=== PATIENT | male | born 1945 | race African-American/Black ===

== ENCOUNTER 2022-05-08 15:55 | Inpatient (IN) | payer OTHER, MEDICAID ==
[~2022-05-08] VITALS: Ht 175.3 cm; Wt 50.3 kg
[2022-05-08] MEDS ORDERED: SODIUM CHLORIDE 0.9% 1000ML BAG (SEPSIS BOLUS) IV ONE (16:45)
[2022-05-08 17:52] LABS: INR 1.1; PROTHROMBIN TIME 11.5 sec (9.6-11.0)
[2022-05-08 17:54] LABS: CHLORIDE 110 mEq/L (98-107)
[2022-05-08 18:24] LABS: HEMATOCRIT. 21.6 % (42.0-52.0); MEAN PLATELET VOLUME 7.8 fl (7.4-10.4); PLATELET 216 x1000/uL (130-400); RED BLOOD CELL COUNT 2.27 mill/uL (4.7-6.1); RED CELL DISTRIBUTION WIDTH 21.1 % (11.6-14.6)
[2022-05-08 18:30] LABS: HEMOGLOBIN. 6.8 g/dL (14.0-18.0)
[2022-05-08 19:46] LABS: PLATELET ESTIMATE NORMAL
[2022-05-08] MEDS ORDERED: CEFEPIME 1,000 MG in DEXTROSE 5% WATER 50 ML IV SCH (20:00)
[2022-05-08] MEDS ORDERED: SODIUM CHLORIDE 0.9% 1,000 ML IV SCH (21:45)
[2022-05-08] MEDS ORDERED: ALBUMIN HUMAN 25GM/100ML (25%) IV PRN (21:45)
[2022-05-08] MEDS ORDERED: PIPERACILLIN/TAZOBACTAM 3.375 G in DEXTROSE 5% WATER 50 ML IV SCH (21:45)
[2022-05-08] MEDS ORDERED: IPRATROPIUM/ALBUTEROL 0.5-3(2.5)MG/3ML NEB NEB PRN (21:45)
[2022-05-08] MEDS ORDERED: ONDANSETRON HCL 4MG/2ML INJ IV PRN (21:45)
[2022-05-08] MEDS ORDERED: PIPERACILLIN/TAZ 3.375G PREMIX 50 ML IV NR (22:00)
[2022-05-08 22:18] LABS: TOTAL IRON BINDING CAPACITY 184 ug/dL (250-450)
[2022-05-08] MEDS ORDERED: VANCOMYCIN 1G PREMIX 200 ML IV SCH (23:00)
[2022-05-09] VITALS (8 sets, daily range): BP systolic 88–128; BP diastolic 45–71
[2022-05-09] MEDS ORDERED: PIPERACILLIN/TAZOBACTAM 3.375G in DEXT 5% WATER 50ML IV SCH (06:00)
[2022-05-09] MEDS ORDERED: PIPERACILLIN/TAZ 3.375G PREMIX 50 ML IV SCH (06:25)
[2022-05-09] MEDS ORDERED: LEVE1000 PO (12:12)
[2022-05-09] MEDS ORDERED: CHOL400D7 MT (12:12)
[2022-05-09] MEDS ORDERED: PHEN50TA MT (12:12)
[2022-05-09] MEDS ORDERED: TOPUD MT (12:12)
[2022-05-09] MEDS ORDERED: COR6 MT (12:12)
[2022-05-09] MEDS ORDERED: LIP40 PO (12:12)
[2022-05-09] MEDS ORDERED: CYAN50009 MT (12:12)
[2022-05-09] MEDS ORDERED: ASPI-1160 PO (12:12)
[2022-05-09] MEDS ORDERED: CARB-298 MT (12:12)
[2022-05-09] MEDS ORDERED: DOCU-286 MT (12:12)
[2022-05-09] MEDS ORDERED: CALC-1139 MT (12:12)
[2022-05-09] MEDS ORDERED: FERR325T6 MT (12:12)
[2022-05-09 15:03] LABS: CLARITY URINE CLEAR (CLEAR); COLOR URINE YELLOW (YELLOW); KETONES URINE NEGATIVE (NEGATIVE); LEUKOCYTE ESTERASE URINE 2+ (NEGATIVE); NITRITE URINE POSITIVE (NEGATIVE); OCCULT BLOOD URINE 3+ (NEGATIVE); PH URINE 5.5 (4.5-8.0); PROTEIN URINE 1+ (NEGATIVE); UROBILINOGEN URINE 0.2 E.U./dL (0.2-1.0)
[2022-05-09 17:06] LABS: HEMATOCRIT. 31.6 % (42.0-52.0); MEAN CORPUSCULAR HEMOGLOBIN 30.7 pg (28.0-32.0); MEAN CORPUSCULAR VOLUME 96.8 fL (80.0-94.0); MEAN PLATELET VOLUME 7.3 fl (7.4-10.4); PLATELET 208 x1000/uL (130-400); RED BLOOD CELL COUNT 3.26 mill/uL (4.7-6.1); RED CELL DISTRIBUTION WIDTH 20.8 % (11.6-14.6)
[2022-05-09 17:22] LABS: CHLORIDE 112 mEq/L (98-107)
[2022-05-09 17:39] LABS: CREATINE KINASE 184 IU/L (39-308); CREATINE KINASE MB FRACTION 2.3 ng/mL (0.5-3.6); HDL CHOLESTEROL 46 mg/dL (40-59); LDL CHOLESTEROL 70 mg/dL (5-100)
[2022-05-09] MEDS: PIPERACILLIN/TAZOBACTAM 3.375 G in DEXTROSE 5% WATER 50 ML IV SCH ×2 (18:44→23:26)
[2022-05-09 21:06] LABS: PLATELET ESTIMATE NORMAL
[2022-05-10] VITALS (12 sets, daily range): BP systolic 97–137; BP diastolic 47–76
[2022-05-10] MEDS: PIPERACILLIN/TAZOBACTAM 3.375 G in DEXTROSE 5% WATER 50 ML IV SCH (06:01)
[2022-05-10 11:43] LABS: HEMOGLOBIN. 8.8 g/dL (14.0-18.0); MEAN CORPUSCULAR HEMOGLOBIN 30.1 pg (28.0-32.0); MEAN CORPUSCULAR VOLUME 95.7 fL (80.0-94.0); MEAN PLATELET VOLUME 6.8 fl (7.4-10.4); PLATELET 175 x1000/uL (130-400); RED BLOOD CELL COUNT 2.93 mill/uL (4.7-6.1); RED CELL DISTRIBUTION WIDTH 20.2 % (11.6-14.6)
[2022-05-10 11:58] LABS: CHLORIDE 110 mEq/L (98-107)
[2022-05-10] MEDS: CARBIDOPA/LEVODOPA 10/100MG TABLET PO SCH ×2 (13:06→17:36)
[2022-05-10] MEDS: LEVETIRACETAM 500MG TABLET PO SCH ×2 (13:06→21:56)
[2022-05-10] MEDS: PANTOPRAZOLE 40MG DR TABLET PO SCH (13:06)
[2022-05-10] MEDS: PHENYTOIN 100 MG/4 ML UDC PO SCH ×2 (13:06→21:58)
[2022-05-10 13:20] LABS: NUCLEATED RED BLOOD CELLS 1 /100 WBC; PLATELET ESTIMATE NORMAL
[2022-05-10 15:45] LABS: FOLIC ACID (FOLATE) SERUM > 20.00 ng/mL (>5.38); VITAMIN B12 SERUM > 2000 pg/mL (211-911)
[2022-05-10] MEDS: CARVEDILOL 6.25 MG TABLET PO SCH (21:57)
[2022-05-11] VITALS (12 sets, daily range): BP systolic 86–123; BP diastolic 49–74
[2022-05-11 05:28] LABS: CHLORIDE 107 mEq/L (98-107)
[2022-05-11 06:15] LABS: HEMATOCRIT. 25.8 % (42.0-52.0); HEMOGLOBIN. 8.3 g/dL (14.0-18.0); MEAN CORPUSCULAR HEMOGLOBIN 30.4 pg (28.0-32.0); MEAN CORPUSCULAR VOLUME 93.9 fL (80.0-94.0); MEAN PLATELET VOLUME 7.4 fl (7.4-10.4); PLATELET 150 x1000/uL (130-400); RED BLOOD CELL COUNT 2.75 mill/uL (4.7-6.1); RED CELL DISTRIBUTION WIDTH 20.2 % (11.6-14.6)
[2022-05-11] MEDS: CARBIDOPA/LEVODOPA 10/100MG TABLET PO SCH ×3 (09:42→16:35)
[2022-05-11] MEDS: ATORVASTATIN CALCIUM 40MG TABLET PO SCH (09:42)
[2022-05-11] MEDS: PANTOPRAZOLE 40MG DR TABLET PO SCH (09:42)
[2022-05-11] MEDS: CARVEDILOL 6.25 MG TABLET PO SCH ×2 (09:44→20:44)
[2022-05-11] MEDS: PHENYTOIN 100 MG/4 ML UDC PO SCH ×2 (09:44→20:44)
[2022-05-11] MEDS: LEVETIRACETAM 500MG TABLET PO SCH ×2 (09:44→20:44)
[2022-05-11] MEDS: DOCUSATE SODIUM 100MG CAPSULE PO SCH (09:45)
[2022-05-11 16:51] LABS: PLATELET ESTIMATE NORMAL
[2022-05-12] VITALS (8 sets, daily range): BP systolic 96–131; BP diastolic 52–74
[2022-05-12 06:40] LABS: HEMATOCRIT. 26.4 % (42.0-52.0); HEMOGLOBIN. 8.4 g/dL (14.0-18.0); MEAN CORPUSCULAR HEMOGLOBIN 30.8 pg (28.0-32.0); MEAN CORPUSCULAR VOLUME 97.1 fL (80.0-94.0); MEAN PLATELET VOLUME 7.3 fl (7.4-10.4); PLATELET 130 x1000/uL (130-400); RED BLOOD CELL COUNT 2.72 mill/uL (4.7-6.1); RED CELL DISTRIBUTION WIDTH 19.9 % (11.6-14.6)
[2022-05-12 06:46] LABS: CHLORIDE 106 mEq/L (98-107)
[2022-05-12] MEDS: DOCUSATE SODIUM 100MG CAPSULE PO SCH (09:00)
[2022-05-12] MEDS: CARVEDILOL 6.25 MG TABLET PO SCH ×2 (09:00→20:34)
[2022-05-12] MEDS: PANTOPRAZOLE 40MG DR TABLET PO SCH (10:19)
[2022-05-12] MEDS: LEVETIRACETAM 500MG TABLET PO SCH ×2 (10:19→20:34)
[2022-05-12] MEDS: PHENYTOIN 100 MG/4 ML UDC PO SCH ×2 (10:19→20:34)
[2022-05-12] MEDS: ATORVASTATIN CALCIUM 40MG TABLET PO SCH (10:19)
[2022-05-12] MEDS: CARBIDOPA/LEVODOPA 10/100MG TABLET PO SCH ×3 (10:20→17:33)
[2022-05-13] VITALS (12 sets, daily range): BP systolic 98–122; BP diastolic 48–68
[2022-05-13 06:22] LABS: HEMATOCRIT. 24.5 % (42.0-52.0); HEMOGLOBIN. 8.1 g/dL (14.0-18.0); MEAN CORPUSCULAR VOLUME 93.9 fL (80.0-94.0); MEAN PLATELET VOLUME 7.2 fl (7.4-10.4); PLATELET 117 x1000/uL (130-400); RED BLOOD CELL COUNT 2.61 mill/uL (4.7-6.1); RED CELL DISTRIBUTION WIDTH 20.1 % (11.6-14.6)
[2022-05-13 06:37] LABS: CHLORIDE 103 mEq/L (98-107)
[2022-05-13] MEDS: PHENYTOIN 100 MG/4 ML UDC PO SCH ×2 (08:47→20:50)
[2022-05-13] MEDS: ATORVASTATIN CALCIUM 40MG TABLET PO SCH (08:47)
[2022-05-13] MEDS: CARBIDOPA/LEVODOPA 10/100MG TABLET PO SCH ×3 (08:47→17:18)
[2022-05-13] MEDS: DOCUSATE SODIUM 100MG CAPSULE PO SCH (08:47)
[2022-05-13] MEDS: PANTOPRAZOLE 40MG DR TABLET PO SCH (08:47)
[2022-05-13] MEDS: CARVEDILOL 6.25 MG TABLET PO SCH ×2 (08:48→20:49)
[2022-05-13] MEDS: LEVETIRACETAM 500MG TABLET PO SCH ×2 (08:48→20:51)
[2022-05-13 10:12] LABS: PLATELET ESTIMATE NORMAL
[2022-05-13 20:04] LABS: NUCLEATED RED BLOOD CELLS 3 /100 WBC; PLATELET ESTIMATE DECREASED
[2022-05-14] VITALS (9 sets, daily range): BP systolic 98–123; BP diastolic 49–75
[2022-05-14] MEDS: PANTOPRAZOLE 40MG DR TABLET PO SCH (07:30)
[2022-05-14] MEDS: ATORVASTATIN CALCIUM 40MG TABLET PO SCH (09:00)
[2022-05-14] MEDS: DOCUSATE SODIUM 100MG CAPSULE PO SCH (09:00)
[2022-05-14] MEDS: PHENYTOIN 100 MG/4 ML UDC PO SCH ×2 (09:00→20:35)
[2022-05-14] MEDS: LEVETIRACETAM 500MG TABLET PO SCH ×2 (09:00→20:35)
[2022-05-14] MEDS: CARBIDOPA/LEVODOPA 10/100MG TABLET PO SCH ×3 (09:00→17:39)
[2022-05-14] MEDS: CARVEDILOL 6.25 MG TABLET PO SCH ×2 (09:00→20:35)
[2022-05-14 12:07] LABS: HEMATOCRIT. 23.5 % (42.0-52.0); HEMOGLOBIN. 7.8 g/dL (14.0-18.0); MEAN CORPUSCULAR HEMOGLOBIN 31.3 pg (28.0-32.0); MEAN CORPUSCULAR VOLUME 94.7 fL (80.0-94.0); MEAN PLATELET VOLUME 7.7 fl (7.4-10.4); PLATELET 118 x1000/uL (130-400); RED BLOOD CELL COUNT 2.48 mill/uL (4.7-6.1); RED CELL DISTRIBUTION WIDTH 20.3 % (11.6-14.6)
[2022-05-14 12:43] LABS: CHLORIDE 105 mEq/L (98-107)
[2022-05-14] MEDS ORDERED: ACETAMINOPHEN 650MG/20.3ML UDC PO PRN (17:15)
[2022-05-14 17:45] LABS: NUCLEATED RED BLOOD CELLS 2 /100 WBC; PLATELET ESTIMATE DECREASED
== END 2022-05-15 00:18 | disposition short-term general hospital (02) | DRG 622 ==
LOC: ER 15:55 → EDBEDREQ 20:03 → EDBEDREQTM 20:03 → 5EST 05-09 09:53
PROVIDERS: ADMIT Internal Medicine; ATTEND Internal Medicine
PROC: 30233N1 Transfusion of Nonautologous Red Blood Cells into Peripheral Vein, Percutaneous Approach (ICD-10-PCS; 2022-05-08)
PROC: 0KBP0ZZ Excision of Left Hip Muscle, Open Approach (ICD-10-PCS; principal; 2022-05-13)
PROC: 0KBN0ZZ Excision of Right Hip Muscle, Open Approach (ICD-10-PCS; 2022-05-13)
PROC: 0JBL0ZZ Excision of Right Upper Leg Subcutaneous Tissue and Fascia, Open Approach (ICD-10-PCS; 2022-05-13)
DX: E16.2 Hypoglycemia, unspecified (principal); L89.154 Pressure ulcer of sacral region, stage 4; L89.213 Pressure ulcer of right hip, stage 3; L89.314 Pressure ulcer of right buttock, stage 4; C79.51 Secondary malignant neoplasm of bone; E44.1 Mild protein-calorie malnutrition; N39.0 Urinary tract infection, site not specified; R64 Cachexia; Z68.1 Body mass index [BMI] 19.9 or less, adult; D63.8 Anemia in other chronic diseases classified elsewhere; Z20.822 Contact with and (suspected) exposure to COVID-19; E87.6 Hypokalemia; I50.9 Heart failure, unspecified; I25.10 Atherosclerotic heart disease of native coronary artery without angina pectoris; I95.9 Hypotension, unspecified; D53.9 Nutritional anemia, unspecified; F02.80 Dementia in other diseases classified elsewhere, unspecified severity, without behavioral disturbance, psychotic disturbance, mood disturbance, and anxiety; E53.8 Deficiency of other specified B group vitamins; G20 Parkinson's disease; G40.909 Epilepsy, unspecified, not intractable, without status epilepticus; R62.7 Adult failure to thrive; Z86.73 Personal history of transient ischemic attack (TIA), and cerebral infarction without residual deficits; Z85.46 Personal history of malignant neoplasm of prostate; Z90.79 Acquired absence of other genital organ(s); Z95.1 Presence of aortocoronary bypass graft
CPT/HCPCS: 36415; 71045; 74176; 76700; 80048; 80053; 80061; 80185; 81003; 82040; 82270; 82550; 82553; 82607; 82746; 82962; 83036; 83540; 83550; 83605; 83880; 84134; 84145; 84443; 84484; 85025; 85044; 85379; 86850; 86900; 86920; 87426; 93005; 93306; 93970; 94640; 99291; A6261; C9803; J0692; J2543; J3370; J7030; J7060; P9016

== ENCOUNTER 2022-07-31 18:17 | Inpatient (IN) | payer OTHER, MEDICAID ==
[~2022-07-31] VITALS: Ht 175.3 cm; Wt 57.2 kg
[~2022-07-31 18:17] MED LIST: ASPI-1160 PO; CALC-1139 MT; CARB-298 MT; CHOL400D7 MT; COR6 MT; CYAN50009 MT; DOCU-286 MT; FERR325T6 MT; LEVE1000 PO; LIP40 PO; PHEN50TA MT; TOPUD MT
[2022-07-31] MEDS ORDERED: VANCOMYCIN 1G PREMIX 200 ML IV ONE (18:30)
[2022-07-31] MEDS ORDERED: SODIUM CHLORIDE 0.9% 1000ML BAG (SEPSIS BOLUS) IV ONE (18:30)
[2022-07-31] MEDS ORDERED: PIPERACILLIN/TAZ 3.375G PREMIX 50 ML IV ONE (18:30)
[2022-07-31 19:21] LABS: BASOPHILS % 0.1 % (0.0-2.0); HEMATOCRIT. 29.9 % (42.0-52.0); HEMOGLOBIN. 9.5 g/dL (14.0-18.0); LYMPHOCYTES % 8.6 % (20.0-50.0); MEAN CORPUSCULAR HEMOGLOBIN 29.6 pg (28.0-32.0); MEAN CORPUSCULAR VOLUME 93.1 fL (80.0-94.0); MEAN PLATELET VOLUME 7.2 fl (7.4-10.4); MONOCYTES % 1.6 % (2.0-8.0); NEUTROPHILS % 89.7 % (40.0-76.0); PLATELET 186 x1000/uL (130-400); RED BLOOD CELL COUNT 3.21 mill/uL (4.7-6.1); RED CELL DISTRIBUTION WIDTH 18.5 % (11.6-14.6)
[2022-07-31 19:31] LABS: INR 1.1
[2022-07-31 19:32] LABS: CHLORIDE 110 mEq/L (98-107)
[2022-07-31 21:34] LABS: CLARITY URINE CLEAR (CLEAR); COLOR URINE YELLOW (YELLOW); KETONES URINE NEGATIVE (NEGATIVE); LEUKOCYTE ESTERASE URINE NEGATIVE (NEGATIVE); NITRITE URINE NEGATIVE (NEGATIVE); OCCULT BLOOD URINE 3+ (NEGATIVE); PROTEIN URINE TRACE (NEGATIVE); SPECIFIC GRAVITY URINE 1.011 (1.005-1.030); UROBILINOGEN URINE 0.2 E.U./dL (0.2-1.0)
[2022-07-31 22:30] VITALS: BP 94/53
[2022-08-01] VITALS (32 sets, daily range): BP systolic 72–124; BP diastolic 30–54
[2022-08-01] MEDS ORDERED: NOREPINEPHRINE 8MG/250ML PMX 250 ML IV ONE (08:45)
[2022-08-01] MEDS ORDERED: SODIUM CHLORIDE 0.9% 1000ML BAG (SEPSIS BOLUS) IV NR (08:45)
[2022-08-01] MEDS: VANCOMYCIN 500MG PREMIX 100 ML IV SCH (10:03)
[2022-08-01] MEDS ORDERED: ACETAMINOPHEN 325MG TABLET PO PRN (10:15)
[2022-08-01] MEDS: ASPIRIN 81MG TABLET PO SCH (10:15)
[2022-08-01] MEDS ORDERED: NALOXONE HCL 0.4MG/ML VIAL IV PRN (10:15)
[2022-08-01] MEDS ORDERED: MAGNESIUM/ALUMINUM HYDROXIDE/SIMETHICONE 30ML UDC PO PRN (10:15)
[2022-08-01] MEDS ORDERED: HYDROCODONE/ACETAMINOPHEN 5/325MG TABLET PO PRN (10:15)
[2022-08-01] MEDS ORDERED: SODIUM CHLORIDE 0.9% 1,000 ML IV SCH (10:15)
[2022-08-01] MEDS ORDERED: ENOXAPARIN 40MG/0.4ML SYR SUBCUT SCH (10:18)
[2022-08-01] MEDS ORDERED: NOREPINEPHRINE 8 MG in DEXTROSE 5% WATER 250 ML IV PRN (10:30)
[2022-08-01] MEDS: CARBIDOPA/LEVODOPA 10/100MG TABLET PO SCH ×3 (11:00→17:00)
[2022-08-01] MEDS: PIPERACILLIN/TAZOBACTAM 3.375 G in DEXTROSE 5% WATER 50 ML IV SCH ×3 (11:11→22:00)
[2022-08-01 11:16] LABS: CHLORIDE 116 mEq/L (98-107)
[2022-08-01] MEDS: CHOLECALCIFEROL (VIT D3) 400 UNIT TABLET PO SCH (11:30)
[2022-08-01] MEDS: CALCIUM 1250MG TABLET (500MG ELEMENTAL CALCIUM) PO SCH (12:12)
[2022-08-01] MEDS ORDERED: IPRATROPIUM/ALBUTEROL 0.5-3(2.5)MG/3ML NEB HHN PRN (14:45)
[2022-08-01] MEDS: DEXT 5%/0.45% NACL 1000ML 1,000 ML IV SCH (15:32)
[2022-08-01] MEDS ORDERED: BISACODYL 10MG SUPP PR NR (17:30)
[2022-08-01] MEDS ORDERED: PHENYTOIN 100 MG/4 ML UDC PO SCH (21:00)
[2022-08-01] MEDS: LEVETIRACETAM 500MG/5ML CUP PO SCH (21:00)
[2022-08-02] VITALS (25 sets, daily range): BP systolic 87–147; BP diastolic 32–73
[2022-08-02] MEDS: VANCOMYCIN 500MG PREMIX 100 ML IV SCH ×2 (02:00→10:48)
[2022-08-02 03:55] LABS: BASOPHILS % 0.2 % (0.0-2.0); EOSINOPHILS % 0.1 % (0.0-5.0); HEMATOCRIT. 27.5 % (42.0-52.0); HEMOGLOBIN. 8.9 g/dL (14.0-18.0); LYMPHOCYTES % 13.3 % (20.0-50.0); MEAN CORPUSCULAR HEMOGLOBIN 29.5 pg (28.0-32.0); MEAN CORPUSCULAR VOLUME 91.5 fL (80.0-94.0); MEAN PLATELET VOLUME 6.9 fl (7.4-10.4); MONOCYTES % 4.4 % (2.0-8.0); PLATELET 130 x1000/uL (130-400); RED CELL DISTRIBUTION WIDTH 18.7 % (11.6-14.6)
[2022-08-02 04:05] LABS: CHLORIDE 111 mEq/L (98-107)
[2022-08-02 04:25] LABS: HDL CHOLESTEROL 57 mg/dL (40-59); LDL CHOLESTEROL 60 mg/dL (5-100); PHOSPHORUS 2.6 mg/dL (2.5-4.9); T4 FREE 0.83 ng/dL (0.76-1.46)
[2022-08-02] MEDS: DEXT 5%/0.45% NACL 1000ML 1,000 ML IV SCH ×2 (05:00→13:45)
[2022-08-02] MEDS: PIPERACILLIN/TAZOBACTAM 3.375 G in DEXTROSE 5% WATER 50 ML IV SCH ×2 (06:47→13:43)
[2022-08-02] MEDS ORDERED: CYANOCOBALAMIN 1000MCG TABLET PO SCH (07:00)
[2022-08-02] MEDS: ASPIRIN 81MG TABLET PO SCH (08:22)
[2022-08-02] MEDS: CHOLECALCIFEROL (VIT D3) 400 UNIT TABLET PO SCH (08:23)
[2022-08-02] MEDS: CALCIUM 1250MG TABLET (500MG ELEMENTAL CALCIUM) PO SCH (08:23)
[2022-08-02] MEDS: LEVETIRACETAM 500MG/5ML CUP PO SCH (08:23)
[2022-08-02] MEDS: CARBIDOPA/LEVODOPA 10/100MG TABLET PO SCH ×3 (08:23→17:00)
[2022-08-02] MEDS ORDERED: ATORVASTATIN CALCIUM 40MG TABLET PO SCH (09:00)
[2022-08-02] MEDS ORDERED: DOCUSATE SODIUM 100MG CAPSULE PO SCH (09:00)
[2022-08-02] MEDS ORDERED: ENOXAPARIN 30MG/0.3ML SYR SUBCUT SCH (09:00)
[2022-08-02] MEDS ORDERED: PANTOPRAZOLE SODIUM 40 MG/VIAL IV SCH (09:00)
[2022-08-02] MEDS ORDERED: BISACODYL 10MG SUPP PR PRN (11:00)
[2022-08-02] MEDS: MINERAL OIL ENEMA 133ML PR NR ×2 (11:59→16:58)
[2022-08-02] MEDS ORDERED: METOPROLOL TARTRATE 5MG/5ML VIAL IV PRN (12:30)
[2022-08-02] MEDS ORDERED: MAGNESIUM 1 G PREMIX 100 ML IV NR (13:15)
[2022-08-02] MEDS ORDERED: POTASSIUM CHLORIDE INJ 40 MEQ in DEXT 5% WATER 250 ML IV ONE (13:15)
[2022-08-02] MEDS: KCL 20MEQ/100ML PREMIX 100 ML IV SCH ×3 (13:43→18:03)
[2022-08-02] MEDS ORDERED: METOPROLOL TARTRATE 25MG TABLET PO SCH (21:00)
[2022-08-03] MEDS ORDERED: VANCOMYCIN 750MG PREMIX 150 ML IV SCH (09:00)
== END 2022-08-02 23:00 | disposition short-term general hospital (02) | DRG 871 ==
LOC: ER 18:17 → 5EST 20:08 → ENRESERV 20:44 → MICUSO 08-01 08:03
PROVIDERS: ADMIT Internal Medicine; ATTEND Internal Medicine
DX: A41.50 Gram-negative sepsis, unspecified (principal); E43 Unspecified severe protein-calorie malnutrition; L89.154 Pressure ulcer of sacral region, stage 4; J96.01 Acute respiratory failure with hypoxia; J18.9 Pneumonia, unspecified organism; R65.21 Severe sepsis with septic shock; R64 Cachexia; Z68.1 Body mass index [BMI] 19.9 or less, adult; J44.0 Chronic obstructive pulmonary disease with (acute) lower respiratory infection; Z20.822 Contact with and (suspected) exposure to COVID-19; I25.10 Atherosclerotic heart disease of native coronary artery without angina pectoris; I11.0 Hypertensive heart disease with heart failure; I50.9 Heart failure, unspecified; R62.7 Adult failure to thrive; D63.8 Anemia in other chronic diseases classified elsewhere; E87.6 Hypokalemia; E83.42 Hypomagnesemia; E53.8 Deficiency of other specified B group vitamins; I95.89 Other hypotension; G40.909 Epilepsy, unspecified, not intractable, without status epilepticus; K59.00 Constipation, unspecified; K52.9 Noninfective gastroenteritis and colitis, unspecified; E86.0 Dehydration; E78.5 Hyperlipidemia, unspecified; I25.2 Old myocardial infarction; Z86.73 Personal history of transient ischemic attack (TIA), and cerebral infarction without residual deficits; Z92.21 Personal history of antineoplastic chemotherapy; Z90.79 Acquired absence of other genital organ(s); Z85.46 Personal history of malignant neoplasm of prostate; Z95.1 Presence of aortocoronary bypass graft
CPT/HCPCS: 36415; 71045; 74177; 76700; 80048; 80053; 80061; 80076; 80202; 81003; 83605; 83735; 84100; 84145; 84439; 84443; 84484; 85025; 86850; 86900; 87076; 87426; 93005; 93306; 93970; 99291; C9113; C9803; J1650; J2543; J3370; J3475; J3480; J3490; J7030; J7060